=== PATIENT | male | born 1965 ===

== ENCOUNTER 2022-06-19 10:44 | Emergency (ER) | payer BC ==
[2022-06-19] MEDS ORDERED: Diphtheria,Pertussis(Acell),Tetanus Vaccine 0.5 ML Syringe IM ONE (11:07)
[2022-06-19] MEDS ORDERED: Lidocaine 1% 5 ML VIAL INJECT ONE (11:08)
== END 2022-06-19 11:22 | disposition home or self-care (01) ==
LOC: DL.ED 10:44
DX: S60.351A Superficial foreign body of right thumb, initial encounter (principal); I10 Essential (primary) hypertension; E03.9 Hypothyroidism, unspecified; Z79.899 Other long term (current) drug therapy; W45.8XXA Other foreign body or object entering through skin, initial encounter
CPT/HCPCS: 90471; 90715; 99282